=== PATIENT | female | born 1955 | race Caucasian/White ===

== ENCOUNTER → 2020-08-22 | Outpatient (CLI) | payer OTHER, MEDICARE ==
--- NOTE | 2020-08-24 15:06 | MM ---
Reason for exam: screening (asymptomatic). History: Patient is postmenopausal and has history of colon cancer at age 50. Family history of breast cancer in maternal aunt. Took hormonal contraceptives for 10 years. Physical Findings: A clinical breast exam by your physician is recommended on an annual basis and results should be correlated with mammographic findings. MG Screening Mammo w CAD Bilateral CC and MLO view(s) were taken. No prior studies available for comparison. The breast tissue is heterogeneously dense. This may lower the sensitivity of mammography. Left sided pacemaker generator. Nodular asymmetric density anterior right CC view. Spot compression recommended. ASSESSMENT: Incomplete: need additional imaging evaluation, BI-RAD 0 RECOMMENDATION: Special view mammogram of the right breast. (3D) If lesion persists on supplemental views, image directed ultrasound is recommended. [facility] will attempt to contact patient to return for supplemental views and ultrasound if indicated.
== END | disposition home or self-care (01) ==
LOC: RADMAMWWP 07:00
PROVIDERS: ATTEND Family Medicine
DX: Z12.31 Encounter for screening mammogram for malignant neoplasm of breast (principal); Z78.0 Asymptomatic menopausal state; Z85.038 Personal history of other malignant neoplasm of large intestine; Z80.3 Family history of malignant neoplasm of breast; Z79.3 Long term (current) use of hormonal contraceptives
CPT/HCPCS: 77067

== ENCOUNTER → 2020-09-12 | Outpatient (CLI) | payer OTHER, MEDICARE ==
--- NOTE | 2020-09-12 10:05 | USB ---
EXAMINATION TYPE: US breast workup limited RT DATE OF EXAM: 09/12/2020 COMPARISON: Mammogram same date CLINICAL HISTORY: r92.8 abnormal mammogram. Findings: The right breast was scanned with ultrasound from 3-6 o'clock and in the retroareolar region and axil arash tail. In the right breast at 3:00, there is a 0.4 x 0.3 x 0.5 cm hypoechoic ovoid lesion which likely repre sents a tiny cyst but is too small to further characterize. Follow-up ultrasound is recommended in 6 months. IMPRESSION: Follow-up ultrasound is recommended in 6 months for the right breast lesion at 3:00. BI-RADS 3, probably benign.
--- NOTE | 2020-09-12 10:57 | MM ---
Reason for exam: additional evaluation requested from abnormal screening. Last mammogram was performed 1 month ago. History: Patient is postmenopausal and has history of colon cancer at age 50. Family history of breast cancer in maternal aunt. Benign excisional biopsy of the right breast. Took hormonal contraceptives for 10 years. Physical Findings: Nurse did not find any significant physical abnormalities on exam. MG 3D Work Up W/Cad RT Spot compression CC, spot compression MLO, and LM view(s) were taken of the right breast. Prior study comparison: August 22, 2020, bilateral MG screening mammo w CAD. There is an ovoid mass in the right lower inner breast at middle depth and ultrasound is recommended. The previously seen asymmetry is pliable and presumably represented normal overlapping tissue. These results were verbally communicated with the patient and result sheet given to the patient on 09/12/20. ASSESSMENT: Incomplete: need additional imaging evaluation, BI-RAD 0 RECOMMENDATION: Ultrasound of the right breast.
== END | disposition home or self-care (01) ==
LOC: RADMAMWWP 08:46
PROVIDERS: ATTEND Family Medicine
DX: N64.89 Other specified disorders of breast (principal); N63.14 Unspecified lump in the right breast, lower inner quadrant; Z78.0 Asymptomatic menopausal state; Z85.038 Personal history of other malignant neoplasm of large intestine; Z80.3 Family history of malignant neoplasm of breast
CPT/HCPCS: 77061; 77065

== ENCOUNTER → 2021-04-30 | Outpatient (CLI) | payer MEDICARE ==
--- NOTE | 2021-04-30 14:59 | USB ---
Reason for exam: additional evaluation requested from abnormal screening. History: Patient is postmenopausal and has history of colon cancer at age 50. Family history of breast cancer in maternal aunt. Benign excisional biopsy of the right breast. Took hormonal contraceptives for 10 years. Physical Findings: A clinical breast exam by your physician is recommended on an annual basis and results should be correlated with mammographic findings. US Breast Limited RT Right limited breast ultrasound including focal area of concern, retroareolar and axilla demonstrates a 0.4 x 0.3 x 0.4cm lesion, likely benign cyst, versus 5 x 4 x 3mm previously. Right breast scanned 12-6 o'clock. These results were verbally communicated with the patient and result sheet given to the patient on 04/30/21. ASSESSMENT: Probably benign, BI-RAD 3 RECOMMENDATION: Follow-up diagnostic mammogram of both breasts in 4 months. Back on schedule for August 2021.
== END | disposition home or self-care (01) ==
LOC: RADUSWWP 14:03
PROVIDERS: ATTEND Family Medicine
DX: N64.89 Other specified disorders of breast (principal); Z85.038 Personal history of other malignant neoplasm of large intestine; Z80.3 Family history of malignant neoplasm of breast; Z78.0 Asymptomatic menopausal state

== ENCOUNTER → 2021-05-06 | Outpatient (CLI) | payer MEDICARE ==
--- NOTE | 2021-05-07 19:37 | BD ---
EXAMINATION TYPE: Axial Bone Density DATE OF EXAM: 05/06/2021 COMPARISON: NONE CLINICAL HISTORY: Postmenopausal screening Height: 63.7 IN Weight: 180 LBS FRAX RISK QUESTIONS: History of Fracture in Adulthood: LT WRIST FX AGE 55 RISK FACTORS HISTORY OF: Active: MODERATE Postmenopausal woman: PARTIAL HYST AGE 44 Take estrogen and/or progesterone medications: NOT NOW How long: TOOK CONTROL FOR APPROX 25 YEARS Lost more than 2 inches in height since high school: YES 02/26" MEDICATIONS: Thyroid Medications: YES Which medication: Levothyroxine How Lon+ YEARS Additional Medications: MULTI VIT, LEVOTHYROXINE, METOPROLOL, SOTALOL, CERTRILINE, LORAZEPAM Additional History: COLON CANCER EXAM MEASUREMENTS: Bone mineral densitometry was performed using the [employer] System. Bone mineral density as measured about the Lumbar spine is: ----- L1-L4(G/cm2): 1.373 T Score Values are as follows: ----- L2: 2.1 ----- L3: 2.0 ----- L4: 1.4 ----- L1-L4: 1.6 Bone mineral density BASELINE Bone mineral density about the R hip (g/cm2): 0.789 Bone mineral density about the L hip (g/cm2): 0.761 T Score values are as follows: -----R Neck: -1.8 -----L Neck: -2.0 -----R Total: -1.1 -----L Total: -1.1 Bone mineral density BASELINE IMPRESSION: Osteopenia (T Score between -2.5 and -1). There is slightly increased risk of fracture and the patient may be considered for treatment. Re-Screen 2-5 years. NOTE: T-SCORE=SD OF THE YOUNG ADULT MEAN.
== END | disposition home or self-care (01) ==
LOC: RADBDWWP 14:17
PROVIDERS: ATTEND Family Medicine
DX: M85.89 Other specified disorders of bone density and structure, multiple sites (principal)
CPT/HCPCS: 77080

== ENCOUNTER 2022-08-18 10:27 | Emergency (ER) | payer MEDICARE ==
--- NOTE | 2022-08-18 11:34 | ED ---
Lower Extremity Injury HPI - General Chief Complaint: Extremity Injury, Lower Stated Complaint: Right leg pain Time Seen by Provider: 08/18/22 11:03 Source: patient, RN notes reviewed, old records reviewed Mode of arrival: ambulatory - History of Present Illness Initial Comments: Nontoxic-appearing a 66-year-old female presents ambulatory with complaints of right lower leg pain. States she woke up this morning and took a couple steps and felt a sharp pain to the front of her right lower leg. Denies any injury. Denies any other joint pain. No fevers. States pain now has resolved. She did take Tylenol prior to arrival. MD Complaint: leg injury (right lower leg) -: hour(s) (this morning) Type of Injury: unknown Severity scale (1-10): 0 - Related Data Allergies Allergy/AdvReac Type Severity Reaction Status Date / Time latex Allergy Rash/Hives Verified 08/18/22 10:34 Opioids - Morphine Analogues Allergy Swelling Verified 09/12/20 09:42 Review of Systems ROS Statement: Those systems with pertinent positive or pertinent negative responses have been documented in the HPI. ROS Other: All systems not noted in ROS Statement are negative. Past Medical History Past Medical History: Cancer Additional Past Medical History / Comment(s): colon cancer History of Any Multi-Drug Resistant Organisms: None Reported Past Surgical History: Hysterectomy, Pacemaker Additional Past Surgical History / Comment(s): colon removal , cataracts Past Psychological History: Depression Smoking Status: Never smoker Past Alcohol Use History: None Reported Past Drug Use History: None Reported General Exam General appearance: alert, in no apparent distress Head exam: Present: atraumatic Eye exam: Present: normal appearance. Absent: scleral icterus, conjunctival injection, periorbital swelling Respiratory exam: Absent: respiratory distress, accessory muscle use Cardiovascular Exam: Present: regular rate Extremities exam: Present: full ROM, tenderness (point tenderness to right anterior tib/fib with bruising), normal capillary refill. Absent: pedal edema, calf tenderness Neurological exam: Present: alert, oriented X3, normal gait Psychiatric exam: Present: normal affect, normal mood Skin exam: Present: warm, dry. Absent: cyanosis, diaphoretic Course Vital Signs 08/18/22 08/18/22 10:28 11:47 Temperature 98 F 97.9 F Pulse Rate 75 62 Respiratory 18 14 Rate Blood Pressure 114/68 126/76 O2 Sat by Pulse 97 98 Oximetry Medical Decision Making - Medical Decision Making Was pt. sent in by a medical professional or institution (ISABEL Low, PROPERTY MANAGEMENT BOOKKEEPER, urgent care, hospital, or alf...) When possible be specific @ -No Did you speak to anyone other than the patient for history (EMS, parent, family, police, friend...)? What history was obtained from this source @ -No Did you review nursing and triage notes (agree or disagree)? Why? @ -I reviewed and agree with nursing and triage notes Were old charts reviewed (outside hosp., previous admission, EMS record, old EKG, old radiological studies, urgent care reports/EKG's, alf records)? Report findings @ -No old charts were reviewed Differential Diagnosis (chest pain, altered mental status, abdominal pain women, abdominal pain men, vaginal bleeding, weakness, fever, dyspnea, syncope, headache, dizziness, GI bleed, back pain, seizure, CVA, palpatations, mental health, musculoskeletal)? @ -Contusion, DVT, cellulitis, musculoskeletal pain EKG interpreted by me (3pts min.). @ -n/a X-rays interpreted by me (1pt min.). @ -None done CT interpreted by me (1pt min.). @ -None done U/S interpreted by me (1pt. min.). @ -None done What testing was considered but not performed or refused? (CT, X-rays, U/S, labs)? Why? @ -X-ray was considered however patient denies trauma. Is able to ambulate full weight-bearing What meds were considered but not given or refused? Why? @ -Toradol offered and patient declined Did you discuss the management of the patient with other professionals (professionals i.e. ISABEL Low, PROPERTY MANAGEMENT BOOKKEEPER, lab, RT, psych nurse, social service agency director, puppy walker, teacher, fire officer, ed case manager)? Give summary @ -No Was smoking cessation discussed for >3mins.? @ -No Was critical care preformed (if so, how long)? @ -No Were there social determinants of health that impacted care today? How? (Homelessness, low income, unemployed, alcoholism, drug addiction, transportation, low edu. Level, literacy, decrease access to med. care, [facility], rehab)? @ -No Was there de-escalation of care discussed even if they declined (Discuss DNR or withdrawal of care, Hospice)? DNR status @ -No What co-morbidities impacted this encounter? (DM, HTN, Smoking, COPD, CAD, Cancer, CVA, ARF, Chemo, Hep., AIDS, mental health diagnosis, sleep apnea, morbid obesity)? @ -None Was patient admitted / discharged? Hospital course, mention meds given and route, prescriptions, significant lab abnormalities, going to OR and other pertinent info. @ -Discharged Nontoxic-appearing a 66-year-old female presents ambulatory with complaints of right lower leg pain. States she woke up this morning and took a couple steps and felt a sharp pain to the front of her right lower leg. Denies any injury. Denies any other joint pain. No fevers. States pain now has resolved. She did take Tylenol prior to arrival with resolution of her pain. Patient is able to ambulate with no pain. There is mild pain with palpation just distal to bruising of her right tib-fib. States does not recall having any injury. Denies any calf pain. No swelling of the lower extremity. No concern for cellulitis. No erythema. Leg is pink warm and dry. Well's score for DVT low risk This is likely musculoskeletal pain. She was offered Toradol and declined. She was directed to follow with her primary care doctor, rest, ice and Tylenol for pain. She is agreeable to this plan of care. Case discussed with Dr. Stiles Undiagnosed new problem with uncertain prognosis? @ -No Drug Therapy requiring intensive monitoring for toxicity (Heparin, Nitro, Insulin, Cardizem)? @ -No Were any procedures done? @ -No Diagnosis/symptom? @ -Contusion, musculoskeletal pain Acute, or Chronic, or Acute on Chronic? @ -Acute Uncomplicated (without systemic symptoms) or Complicated (systemic symptoms)? @ -Uncomplicated Side effects of treatment? @ -No Exacerbation, Progression, or Severe Exacerbation? @ -No Poses a threat to life or bodily function? How? (Chest pain, USA, SC, pneumonia, PE, COPD, DKA, ARF, appy, cholecystitis, CVA, Diverticulitis, Homicidal, Suicidal, threat to staff... and all critical care pts) @ -No Disposition Clinical Impression: Musculoskeletal pain of right lower extremity, Hematoma Disposition: HOME SELF-CARE Condition: Good Instructions (If sedation given, give patient instructions): Musculoskeletal Pain (ED), Hematoma (ED) Additional Instructions: Continue Tylenol as needed for any pain or discomfort. Follow-up with the primary care doctor this week. Return to the emergency room with any new or concerning symptoms including lower leg swelling, redness, fevers, inability to ambulate or increased pain. Is patient prescribed a controlled substance at d/c from ED?: No Referrals: Garett Adkins MD [Primary Care Provider] - 1-2 days Time of Disposition: 11:34
[2022-08-18 11:49] VITALS: BP 126/76; PULSE 62; RESP 14; TEMP 97.9
== END 2022-08-18 11:49 | disposition home or self-care (01) ==
LOC: EC 10:27
DX: S89.91XA Unspecified injury of right lower leg, initial encounter (principal); Z88.5 Allergy status to narcotic agent; Z91.040 Latex allergy status; Z86.59 Personal history of other mental and behavioral disorders; W10.8XXA Fall (on) (from) other stairs and steps, initial encounter
CPT/HCPCS: 99283

== ENCOUNTER → 2023-01-29 | Outpatient (CLI) | payer MEDICARE ==
--- NOTE | 2023-02-02 19:26 | MM ---
Reason for Exam: Screening (asymptomatic). Last mammogram was performed 2 year(s) and 6 month(s) ago. Patient History: Menarche at age 11. First Full-Term at age 18. Hysterectomy at age 48. Postmenopausal. Colorectal cancer, age 50. Patient used Hormonal Contraceptives for 10 years. Benign Excisional Biopsy on the right side. Maternal aunt had breast cancer. Risk Values: Michelle 5 year model risk: 1.8%. NCI Lifetime model risk: 5.6%. Prior Study Comparison: 08/22/2020 Bilateral Screening Mammogram, [facility] WITH [facility]. 09/12/2020 Right Diagnostic Mammogram, [facility] WITH [facility]. Tissue Density: The breast tissue is heterogeneously dense. This may lower the sensitivity of mammography. Findings: Analyzed By CAD. There is no suspicious group of microcalcifications or new suspicious mass in either breast. Overall Assessment: Negative, BI-RAD 1 Management: Screening Mammogram of both breasts in 1 year. . Patient should continue monthly self-breast exams. A clinical breast exam by your physician is recommended on an annual basis. This exam should not preclude additional follow-up of suspicious palpable abnormalities. Note on Michelle scores and lifetime risk: 1. A Michelle score greater than 3% is considered moderate risk. If this is the case, consider specialist referral to assess eligibility for a risk reducing agent. 2. If overall lifetime risk for the development of breast cancer is 20% or higher, the patient may qualify for future screening with alternating mammogram and breast MRI. Electronically signed and approved by: Edgar Donaldson M.D. Radiologist
== END | disposition home or self-care (01) ==
LOC: RADMAMWWP 15:49
PROVIDERS: ATTEND Family Medicine
DX: Z12.31 Encounter for screening mammogram for malignant neoplasm of breast (principal); Z78.0 Asymptomatic menopausal state; Z80.3 Family history of malignant neoplasm of breast
CPT/HCPCS: 77063; 77067

== ENCOUNTER → 2023-05-19 | Outpatient (CLI) | payer MEDICARE ==
[2023-05-19 15:42] LABS: Basophils # (A) 0.06 X 10*3/uL (0.00-0.10); Basophils % (A) 0.9 %; Eosinophils # (A) 0.39 X 10*3/uL (0.04-0.35); Eosinophils % (A) 6.1 %; HCT 41.1 % (37.2-46.3); HGB 13.3 g/dL (12.0-15.0); Lymphocytes # (A) 2.25 X 10*3/uL (0.90-5.00); Lymphocytes % (A) 35.2 %; MCH 31.6 pg (27.0-32.0); MCHC 32.4 g/dL (32.0-37.0); MCV 97.6 FL (80.0-97.0); Mean Platelet Volume 10.2 FL (9.5-12.2); Monocytes % (A) 9.4 %; NRBC Per 100 WBC 0 X 10*3/uL (0.00-0.01); Neutrophils # (A) 3.08 X 10*3/uL (1.80-7.70); Neutrophils % (A) 48.2 %; Platelet Count 309 X 10*3/uL (140-440); RBC 4.21 X 10*6/uL (4.10-5.20); RDW 13.2 % (11.5-14.5); WBC 6.39 X 10*3/uL (4.50-10.00)
[2023-05-19 16:20] LABS: ALT 25 U/L (8-44); AST 26 U/L (13-35); Albumin 4.4 g/dL (3.8-4.9); Albumin/Globulin Ratio 1.57 Ratio (1.60-3.17); Alkaline Phosphatase 81 U/L (41-126); BUN/Creat Ratio 17.83 Ratio (12.00-20.00); Blood Urea Nitrogen 21.4 mg/dL (9.0-27.0); Calcium 10.7 mg/dL (8.7-10.3); Carbon Dioxide 26.1 mmol/L (21.6-31.8); Chloride 104 mmol/L (96-109); Globulin 2.8 g/dL (1.6-3.3); Glucose 114 mg/dL (70-110); Potassium 4.3 mmol/L (3.5-5.5); Sodium 141 mmol/L (135-145); T4, Free (Free Thyroxine) 1.18 ng/dL (0.80-1.80); Total Bilirubin 0.4 mg/dL (0.3-1.2); Total Protein 7.2 g/dL (6.2-8.2)
[2023-05-20 08:40] LABS: Angiotensin-1 Converting Enz. 60 U/L (8-52)
[2023-05-20 19:33] LABS: Vitamin D, 1, 25-Dihydroxy 24 pg/mL (20 - 79)
== END | disposition home or self-care (01) ==
LOC: LABWHC1 09:41
PROVIDERS: ATTEND Internal Medicine Critical Care Medicine
DX: D86.85 Sarcoid myocarditis (principal)
CPT/HCPCS: 36415; 80053; 82164; 82652; 84439; 84443; 85025